=== PATIENT | male | born 1980 | race Caucasian/White ===

== ENCOUNTER 2020-07-23 17:45 | Observation (INO) | payer OTHER ==
[2020-07-23] MEDS ORDERED: Sodium Chloride 0.9% 10 ML Syringe FLUSH PRN (18:04)
[2020-07-23] MEDS ORDERED: HYDROmorphone 0.5 MG/0.5 ML Syringe IVPUSH ONE (18:05)
[2020-07-23] MEDS ORDERED: Ondansetron 4 MG/2 ML SDV IVPUSH ONE (18:05)
--- NOTE | 2020-07-23 19:26 | US ---
Limited abdominal ultrasound: Multiple real-time images of the upper right abdomen were obtained. Comparison: No previous abdominal imaging is available. Findings: Liver is somewhat echogenic as related to the kidney most likely representing fatty infiltration. Right kidney shows no hydronephrosis or mass and has a length of 11.7 cm. Multiple gallstones are seen within the gallbladder as well as sludge. Gallbladder wall shows very slight areas of thickening. Minimal edema is noted around the gallbladder wall. CHD is seen and is normal in size. Common bile duct is not visualized but most likely is within normal limits given the normal CBD size. Pancreas is incompletely seen, visualized portions of the pancreas are within normal limits. Main portal vein shows normal hepatopedal flow. Impression: 1. Gallstones and sludge within the gallbladder. Gallbladder wall shows some areas of slight thickening with mild pericholecystic fluid. No biliary duct dilatation is definitely seen. 2. Fatty infiltration within the liver. 3. No additional abnormality is appreciated. Diagnostic code #3
[2020-07-23] MEDS ORDERED: Piperacillin/Tazobactam 4.5 GM in Sodium Chloride 0.9% 100 ML IV ONE (19:33)
--- NOTE | 2020-07-23 19:44 | EDM.PDOC ---
ED HPI GENERAL MEDICAL PROBLEM - General Chief Complaint: Abdominal Pain Stated Complaint: ABD PAIN Time Seen by Provider: 07/23/20 17:55 Source of Information: Reports: Patient, RN Notes Reviewed History Limitations: Reports: No Limitations - History of Present Illness INITIAL COMMENTS - FREE TEXT/NARRATIVE: Patient is a 40-year-old male presenting to the emergency department with complaints of right upper quadrant pain with onset around 1600 this afternoon. He states he has had 2 other episodes similar to this in the past few months; however, those episodes resolved within 1 hour. The pain today is persistent. He denies any nausea or vomiting associated with this. He said no fever or chills. Denies any significant fatty meals. This afternoon he has had a couple [place] kisses and some almonds. Other than that he has not eaten since breakfast this morning. He denies any chronic medical conditions and has had no previous abdominal surgeries. Abdominal Pain Score (Numeric/FACES): 4 - Related Data Allergies Allergy/AdvReac Type Severity Reaction Status Date / Time No Known Allergies Allergy Verified 07/23/20 17:56 Home Meds: Home Meds . [No Known Home Meds] 07/23/20 [History] Past Medical History - Past Health History Medical/Surgical History: Denies Medical/Surgical History Social & Family History - Tobacco Use Tobacco Use Status *Q: Light Tobacco User Years of Tobacco use: 10 Packs/Tins Daily: 0.1 - Caffeine Use Caffeine Use: Reports: Coffee, Soda - Recreational Drug Use Recreational Drug Use: No ED ROS GENERAL - Review of Systems Review Of Systems: See Below Constitutional: Reports: No Symptoms. Denies: Fever, Chills, Weakness HEENT: Reports: No Symptoms Respiratory: Reports: No Symptoms Cardiovascular: Reports: No Symptoms Endocrine: Reports: No Symptoms GI/Abdominal: Reports: Abdominal Pain. Denies: Diarrhea, Nausea, Vomiting : Reports: No Symptoms Musculoskeletal: Reports: No Symptoms Skin: Reports: No Symptoms Neurological: Reports: No Symptoms Psychiatric: Reports: No Symptoms Hematologic/Lymphatic: Reports: No Symptoms Immunologic: Reports: No Symptoms ED EXAM, GI/ABD - Physical Exam Exam: See Below General Appearance: Alert, WD/WN, No Apparent Distress Respiratory/Chest: No Respiratory Distress, Lungs Clear, Normal Breath Sounds, No Accessory Muscle Use, Chest Non-Tender Cardiovascular: Normal Peripheral Pulses GI/Abdominal Exam: Normal Bowel Sounds, Soft, No Organomegaly, No Distention, No Abnormal Bruit, No Mass, Pelvis Stable, Tender (Right upper quadrant. Positive Velazquez sign) Neurological: Alert, Oriented, CN II-XII Intact, Normal Cognition, Normal Gait, Normal Reflexes, No Motor/Sensory Deficits Psychiatric: Normal Affect, Normal Mood Skin Exam: Warm, Dry, Intact, Normal Color, No Rash Course - Vital Signs Last Recorded V/S: Last Vital Signs Temp 96.9 F 07/23/20 17:52 Pulse 60 07/23/20 17:52 Resp 20 07/23/20 17:52 BP 160/100 H 07/23/20 17:52 Pulse Ox 100 07/23/20 17:52 - Orders/Labs/Meds Orders: Active Orders 24 hr Category Date Time Status Peripheral IV Care [RC] . DIRECTED Care 07/23/20 18:04 Active Piperacillin/Tazobactam [Piperacil-Tazobact] 4.5 gm Med 07/23/20 19:33 Active Sodium Chloride 0.9% [Normal Saline] 100 ml IV ONETIME Sodium Chloride 0.9% [Saline Flush] Med 07/23/20 18:04 Active 10 ml FLUSH ASDIRECTED PRN Peripheral IV Insertion Adult [OM.PC] Stat Oth 07/23/20 18:04 Ordered Medication Orders Piperacillin Sod/Tazobactam (Sod 4.5 gm/ Sodium Chloride) 100 mls @ 200 mls/hr IV ONETIME ONE Stop: 07/23/20 20:02 Sodium Chloride (Saline Flush) 10 ml FLUSH ASDIRECTED PRN PRN Reason: Keep Vein Open Last Admin: 07/23/20 18:18 Dose: 10 ml Documented by: DARLIN Labs: Laboratory Tests 07/23/20 07/23/20 Range/Units 18:00 18:00 WBC 7.66 (4.23-9.07) K/mm3 RBC 5.45 (4.63-6.08) M/mm3 Hgb 15.7 (13.7-17.5) gm/dl Hct 46.1 (40.1-51.0) % MCV 84.6 (79.0-92.2) fl MCH 28.8 (25.7-32.2) pg MCHC 34.1 (32.2-35.5) g/dl RDW Std Deviation 37.5 (35.1-43.9) fL Plt Count 296 (163-337) K/mm3 MPV 9.6 (9.4-12.3) fl Neut % (Auto) 61.5 (34.0-67.9) % Lymph % (Auto) 24.5 (21.8-53.1) % [place] % (Auto) 7.6 (5.3-12.2) % Eos % (Auto) 5.9 (0.8-7.0) Baso % (Auto) 0.4 (0.1-1.2) % Neut # (Auto) 4.71 (1.78-5.38) K/mm3 Lymph # (Auto) 1.88 (1.32-3.57) K/mm3 [place] # (Auto) 0.58 (0.30-0.82) K/mm3 Eos # (Auto) 0.45 (0.04-0.54) K/mm3 Baso # (Auto) 0.03 (0.01-0.08) K/mm3 Sodium 142 (136-145) mEq/L Potassium 3.8 (3.5-5.1) mEq/L Chloride 105 (98-107) mEq/L Carbon Dioxide 26 (21-32) mEq/L Anion Gap 14.8 (5-15) BUN 11 (7-18) mg/dL Creatinine 1.1 (0.7-1.3) mg/dL Est Cr Clr Drug Dosing 93.09 mL/min Estimated GFR (MDRD) > 60 (>60) mL/min BUN/Creatinine Ratio 10.0 L (14-18) Glucose 123 H (74-106) mg/dL Calcium 9.4 (8.5-10.1) mg/dL Total Bilirubin 0.3 (0.2-1.0) mg/dL GGT 33 (15-85) U/L AST 24 (15-37) U/L ALT 51 (16-63) U/L Alkaline Phosphatase 64 (46-116) U/L C-Reactive Protein <0.2 (<1.0) mg/dL Total Protein 7.7 (6.4-8.2) g/dl Albumin 4.3 (3.4-5.0) g/dl Globulin 3.4 gm/dL Albumin/Globulin Ratio 1.3 (1-2) Lipase 139 (73-393) U/L Meds: Medications Generic Name Dose Route Start Last Admin Trade Name Bebe PRN Reason Stop Dose Admin Piperacillin Sod/Tazobactam 100 mls @ 200 mls/hr 07/23/20 19:33 Sod 4.5 gm/ Sodium Chloride IV 07/23/20 20:02 ONETIME ONE Sodium Chloride 10 ml 07/23/20 18:04 07/23/20 18:18 Saline Flush FLUSH 10 ml ASDIRECTED PRN Administration Keep Vein Open Discontinued Medications Generic Name Dose Route Start Last Admin Trade Name Freq PRN Reason Stop Dose Admin Hydromorphone HCl 0.5 mg 07/23/20 18:05 07/23/20 18:18 Dilaudid IVPUSH 07/23/20 18:06 0.5 mg ONETIME ONE Administration Ondansetron HCl 4 mg 07/23/20 18:05 07/23/20 18:18 Zofran IVPUSH 07/23/20 18:06 4 mg ONETIME ONE Administration - Re-Assessments/Exams Free Text/Narrative Re-Assessment/Exam: Patient is a 40-year-old male presenting to the emergency department with complaints of right upper quadrant abdominal pain since 1600 this afternoon. On exam, patient is tender in the right upper quadrant with a positive Velazquez sign. He denies any nausea or vomiting. I have ordered blood work, and right upper quadrant abdominal ultrasound. We will give him a 1 L bolus of normal saline, Zofran 4 mg IV, Dilaudid 0.5 mg IV. 07/23/20 19:41 Hematology is grossly unremarkable. Results of the right upper quadrant ultrasound show gallstones and sludge within the gallbladder. Gallbladder wall shows some areas of slight thickening and mild pericholecystic fluid. No biliary duct dilatation is definitively seen. Fatty infiltrates within the liver. Case discussed with general surgeon, Dr. Kim. He would like him admitted to observation with a plan to take his gallbladder out tomorrow morning. I will write for bridge orders per his request. Patient has been updated and is in agreement. Departure - Departure Time of Disposition: 19:44 Disposition: Refer to Observation Condition: Good Clinical Impression: Cholecystitis - Discharge Information Referrals: PCP,None [Primary Care Provider] - Sepsis Event Note (ED) - Evaluation Sepsis Screening Result: No Definite Risk - Focused Exam Vital Signs: Vital Signs Temp Pulse Resp BP Pulse Ox 07/23/20 17:52 96.9 F 60 20 160/100 H 100 - My Orders Last 24 Hours: My Active Orders 07/23/20 18:04 Peripheral IV Care [RC] . DIRECTED Sodium Chloride 0.9% [Saline Flush] 10 ml FLUSH ASDIRECTED PRN Peripheral IV Insertion Adult [OM.PC] Stat 07/23/20 19:33 Piperacillin/Tazobactam [Piperacil-Tazobact] 4.5 gm Sodium Chloride 0.9% [Normal Saline] 100 ml IV ONETIME - Assessment/Plan Last 24 Hours: My Active Orders 07/23/20 18:04 Peripheral IV Care [RC] . DIRECTED Sodium Chloride 0.9% [Saline Flush] 10 ml FLUSH ASDIRECTED PRN Peripheral IV Insertion Adult [OM.PC] Stat 07/23/20 19:33 Piperacillin/Tazobactam [Piperacil-Tazobact] 4.5 gm Sodium Chloride 0.9% [Normal Saline] 100 ml IV ONETIME
[2020-07-23] MEDS: Lactated Ringers 1,000 ML IV SCH (21:10)
[2020-07-23] MEDS ORDERED: Ondansetron 4 MG/2 ML SDV IVPUSH PRN (22:04)
[2020-07-23] MEDS ORDERED: HYDROmorphone 0.5 MG/0.5 ML Syringe IVPUSH PRN (22:04)
[2020-07-24] MEDS: Piperacillin/Tazobactam 4.5 GM in Sodium Chloride 0.9% 100 ML IV SCH ×2 (03:10→10:33)
[2020-07-24] MEDS ORDERED: Piperacillin/Tazobactam 4.5 GM in Sodium Chloride 0.9% 100 ML IV SCH (04:00)
[2020-07-24] MEDS: Lactated Ringers 1,000 ML IV SCH (07:19)
[2020-07-24] MEDS ORDERED: Rocuronium 50 MG/5 ML Vial ONE (09:28)
[2020-07-24] MEDS ORDERED: Dexamethasone 4 MG/ML 5 ML MDV ONE (09:28)
[2020-07-24] MEDS ORDERED: fentaNYL 250 MCG/5 ML SDV ONE (09:28)
[2020-07-24] MEDS ORDERED: Ondansetron 4 MG/2 ML SDV ONE (09:28)
[2020-07-24] MEDS ORDERED: Propofol 200 MG/20 ML SDV ONE (09:28)
[2020-07-24] MEDS ORDERED: Midazolam 1 MG/ML 2 ML SDV ONE (09:28)
[2020-07-24] MEDS ORDERED: Lidocaine 1% 4 ML ONE (09:28)
--- NOTE | 2020-07-24 10:01 | PCM.PREANE ---
Preanesthetic Assessment - Procedure Proposed Procedure: Laparoscopic Cholecystectomy - Anesthesia/Transfusion/Family Hx Anesthesia History: No Prior Anesthesia Family History of Anesthesia Reaction: No Transfusion History: No Prior Transfusion(s) - Review of Systems General: No Symptoms Pulmonary: No Symptoms (Occasional Cigar. Up to 5 per week at the most. ) Cardiovascular: No Symptoms, Other (Good exercise capacity. > 4 METs) Gastrointestinal: Other (GERD controlled with Tums. No symptoms today. ) Other: Reports: None - Physical Assessment NPO Status Date: 07/23/20 NPO Status Time: 23:30 (Sip Water) Vital Signs: Last Vital Signs Temp 37.1 C 07/24/20 08:38 Pulse 65 07/24/20 08:38 Resp 16 07/24/20 08:38 BP 151/104 H 07/24/20 08:38 Pulse Ox 96 07/24/20 08:38 Height: 1.78 m Weight: 88.451 kg ASA Class: 2 Mental Status: Alert & Oriented x3 Airway Class: Mallampati = 1 Dentition: Reports: Normal Dentition Thyro-Mental Finger Breadths: 3 Mouth Opening Finger Breadths: 3 ROM/Head Extension: Full Lungs: Clear to Auscultation, Normal Respiratory Effort Cardiovascular: Regular Rate, Regular Rhythm - Lab Values: Laboratory Last Values WBC 7.66 K/mm3 (4.23-9.07) 07/23/20 18:00 RBC 5.45 M/mm3 (4.63-6.08) 07/23/20 18:00 Hgb 15.7 gm/dl (13.7-17.5) 07/23/20 18:00 Hct 46.1 % (40.1-51.0) 07/23/20 18:00 MCV 84.6 fl (79.0-92.2) 07/23/20 18:00 MCH 28.8 pg (25.7-32.2) 07/23/20 18:00 MCHC 34.1 g/dl (32.2-35.5) 07/23/20 18:00 RDW Std Deviation 37.5 fL (35.1-43.9) 07/23/20 18:00 Plt Count 296 K/mm3 (163-337) 07/23/20 18:00 MPV 9.6 fl (9.4-12.3) 07/23/20 18:00 Neut % (Auto) 61.5 % (34.0-67.9) 07/23/20 18:00 Lymph % (Auto) 24.5 % (21.8-53.1) 07/23/20 18:00 [place] % (Auto) 7.6 % (5.3-12.2) 07/23/20 18:00 Eos % (Auto) 5.9 (0.8-7.0) 07/23/20 18:00 Baso % (Auto) 0.4 % (0.1-1.2) 07/23/20 18:00 Neut # (Auto) 4.71 K/mm3 (1.78-5.38) 07/23/20 18:00 Lymph # (Auto) 1.88 K/mm3 (1.32-3.57) 07/23/20 18:00 [place] # (Auto) 0.58 K/mm3 (0.30-0.82) 07/23/20 18:00 Eos # (Auto) 0.45 K/mm3 (0.04-0.54) 07/23/20 18:00 Baso # (Auto) 0.03 K/mm3 (0.01-0.08) 07/23/20 18:00 Sodium 142 mEq/L (136-145) 07/23/20 18:00 Potassium 3.8 mEq/L (3.5-5.1) 07/23/20 18:00 Chloride 105 mEq/L (98-107) 07/23/20 18:00 Carbon Dioxide 26 mEq/L (21-32) 07/23/20 18:00 Anion Gap 14.8 (5-15) 07/23/20 18:00 BUN 11 mg/dL (7-18) 07/23/20 18:00 Creatinine 1.1 mg/dL (0.7-1.3) 07/23/20 18:00 Est Cr Clr Drug Dosing 93.09 mL/min 07/23/20 18:00 Estimated GFR (MDRD) > 60 mL/min (>60) 07/23/20 18:00 BUN/Creatinine Ratio 10.0 (14-18) L 07/23/20 18:00 Glucose 123 mg/dL (74-106) H 07/23/20 18:00 Calcium 9.4 mg/dL (8.5-10.1) 07/23/20 18:00 Total Bilirubin 0.3 mg/dL (0.2-1.0) 07/23/20 18:00 GGT 33 U/L (15-85) 07/23/20 18:00 AST 24 U/L (15-37) 07/23/20 18:00 ALT 51 U/L (16-63) 07/23/20 18:00 Alkaline Phosphatase 64 U/L (46-116) 07/23/20 18:00 C-Reactive Protein <0.2 mg/dL (<1.0) 07/23/20 18:00 Total Protein 7.7 g/dl (6.4-8.2) 07/23/20 18:00 Albumin 4.3 g/dl (3.4-5.0) 07/23/20 18:00 Globulin 3.4 gm/dL 07/23/20 18:00 Albumin/Globulin Ratio 1.3 (1-2) 07/23/20 18:00 Lipase 139 U/L (73-393) 07/23/20 18:00 SARS-CoV-2 RNA (LISA) Negative (NEGATIVE) 07/23/20 19:47 - Allergies Allergies/Adverse Reactions: Allergies Allergy/AdvReac Type Severity Reaction Status Date / Time No Known Allergies Allergy Verified 07/23/20 17:56 - Anesthesia Plan Pre-Op Medication Ordered: None - Acknowledgements Anesthesia Type Planned: General Anesthesia Pt an Appropriate Candidate for the Planned Anesthesia: Yes Alternatives and Risks of Anesthesia Discussed w Pt/Guardian: Yes Pt/Guardian Understands and Agrees with Anesthesia Plan: Yes PreAnesthesia Questionnaire - Past Health History Medical/Surgical History: Denies Medical/Surgical History Psychiatric History: Reports: None Hematologic History: Reports: None - Infectious Disease History Infectious Disease History: Reports: Chicken Pox, Influenza Other Infectious Disease History: Hx of influenza last or prior year and chicken pox as a child, as well as pneumonia as a young child - SUBSTANCE USE Tobacco Use Status *Q: Light Tobacco User Tobacco Use Within Last Twelve Months: Cigars Recreational Drug Use History: No - HOME MEDS Home Medications: Home Meds . [No Known Home Meds] 07/23/20 [History] - CURRENT (IN HOUSE) MEDS Current Meds: Current Medications Hydromorphone HCl (Dilaudid) 0.5 mg IVPUSH Q4H PRN PRN Reason: Pain Lactated Ringer's (Ringers, Lactated) 1,000 mls @ 100 mls/hr IV ASDIRECTED [facility] Last Admin: 07/24/20 07:19 Dose: 100 mls/hr Documented by: Piperacillin Sod/Tazobactam (Sod 4.5 gm/ Sodium Chloride) 100 mls @ 25 mls/hr IV Q8H [facility] Last Admin: 07/24/20 03:10 Dose: 25 mls/hr Documented by: Ondansetron HCl (Zofran) 4 mg IVPUSH Q6H PRN PRN Reason: Nausea/Vomiting Sodium Chloride (Saline Flush) 10 ml FLUSH ASDIRECTED PRN PRN Reason: Keep Vein Open Last Admin: 07/23/20 18:18 Dose: 10 ml Documented by: Discontinued Medications Dexamethasone (Dexamethasone) Confirm Administered Dose 20 mg .ROUTE .STK-MED ONE Stop: 07/24/20 09:29 Fentanyl (Sublimaze) Confirm Administered Dose 250 mcg .ROUTE .STK-MED ONE Stop: 07/24/20 09:29 Hydromorphone HCl (Dilaudid) 0.5 mg IVPUSH ONETIME ONE Stop: 07/23/20 18:06 Last Admin: 07/23/20 18:18 Dose: 0.5 mg Documented by: Piperacillin Sod/Tazobactam (Sod 4.5 gm/ Sodium Chloride) 100 mls @ 200 mls/hr IV ONETIME ONE Stop: 07/23/20 20:02 Last Admin: 07/23/20 19:45 Dose: 200 mls/hr Documented by: Piperacillin Sod/Tazobactam (Sod 4.5 gm/ Sodium Chloride) 100 mls @ 25 mls/hr IV Q8H [facility] Lidocaine HCl (Xylocaine-Mpf 1%) Confirm Administered Dose 4 mls @ as directed .ROUTE .STK-MED ONE Stop: 07/24/20 09:29 Midazolam HCl (Versed 1 Mg/Ml) Confirm Administered Dose 2 mg .ROUTE .STK-MED ONE Stop: 07/24/20 09:29 Ondansetron HCl (Zofran) 4 mg IVPUSH ONETIME ONE Stop: 07/23/20 18:06 Last Admin: 07/23/20 18:18 Dose: 4 mg Documented by: Ondansetron HCl (Zofran) Confirm Administered Dose 4 mg .ROUTE .STK-MED ONE Stop: 07/24/20 09:29 Propofol (Diprivan 20 Ml) Confirm Administered Dose 200 mg .ROUTE .STK-MED ONE Stop: 07/24/20 09:29 Rocuronium [place] (Zemuron) Confirm Administered Dose 50 mg .ROUTE .STK-MED ONE Stop: 07/24/20 09:29
[2020-07-24] MEDS ORDERED: Bupivacaine 0.5%/EPINEPHrine 1:200,000 50 ML MDV ONE (10:16)
[2020-07-24] MEDS ORDERED: fentaNYL 100 MCG/2 ML SDV IVPUSH PRN (10:58)
[2020-07-24] MEDS ORDERED: HYDROmorphone 0.5 MG/0.5 ML Syringe IVPUSH PRN (10:58)
[2020-07-24] MEDS ORDERED: Ondansetron 4 MG/2 ML SDV IVPUSH PRN (10:58)
[2020-07-24] MEDS ORDERED: HYDROmorphone 0.5 MG/0.5 ML Syringe ONE (11:07)
[2020-07-24] MEDS ORDERED: Ketorolac 30 MG/ML SDV ONE (11:26)
[2020-07-24] MEDS ORDERED: Lactated Ringers 1,000 ML ONE (11:29)
--- NOTE | 2020-07-24 11:52 | PCM.PRNOTE ---
- Free Text/Narrative Note: Date: 07/24/2020 Operation: laparoscopic cholecystectomy Surgeon: Justen Kim MD Findings: acute calculous cholecystitis. Critical view of safety obtained. Detailed Report: The patient was taken to the operating room and placed in supine position. Timeout was performed, and general endotracheal anesthesia was initiated. Abdominal hair was clipped, and the abdomen was prepped and draped in usual sterile fashion. A Veress needle was placed at the left upper quadrant to establish pneumoperitoneum. Air was aspirated at the umbilicus. A bladed 5 mm trocar was placed at the site. The laparoscope was inserted and abdominal contents were inspected. There was no inadvertent injury from Veress needle keyla cement. The needle was withdrawn, and additional 5 mm ports were placed in the patient's right upper side under laparoscopic visualization. The gallbladder was grasped at the fundus and retracted cephalad. An additional 12 mm bladed trocar was placed at the subxiphoid site. Dissection ensued, identifying the cystic structures. The surgeon retracted the infundibulum laterally, and a critical view of safety was obtained after skeletonizing the cystic duct and artery. Hemolock clips were placed on the structures and they were transected with laparoscopic scissors. Hook monopolar energy was used to separate the gallbladder from the liver. No bile was spilled. The specimen was placed in an Endo Catch bag and removed through the subxiphoid site. The dissection field appeared clean and dry. 0 Vicryl was used to close the larger incision at the level of fascia using a laparoscopic suture passer. Because there was a small umbilical hernia, the trocar site there was closed at the level of the fascia with 0 Vicryl using the laparoscopic suture passer as well. Other ports were removed under laparoscopic visualization, and pneumoperitoneum was released. All incisions were closed at the level of the skin with 4-0 Vicryl. Wounds were dressed with Dermabond. A total of 26 cc of 0.5% Marcaine with epinephrine was used for local anesthetic throughout the case. The patient tolerated the procedure well.
--- NOTE | 2020-07-24 11:54 | PCM.HP.2 ---
H&P History of Present Illness - General Date of Service: 07/24/20 Admit Problem/Dx: Admission Diagnosis/Problem Admission Diagnosis/Problem Cholecystitis Source of Information: Patient History Limitations: Reports: No Limitations - History of Present Illness Initial Comments - Free Text/Narative: The patient is a healthy 40-year-old presenting with his third episode of right upper quadrant pain. Work-up shows evidence of cholecystitis on ultrasound with otherwise normal labs. Abdominal Pain Score (Numeric/FACES): 0 - Related Data Allergies/Adverse Reactions: Allergies Allergy/AdvReac Type Severity Reaction Status Date / Time No Known Allergies Allergy Verified 07/23/20 17:56 Home Medications: Home Meds oxyCODONE 5 mg PO Q4H PRN #15 tab 07/24/20 [Rx] Past Medical History - Past Health History Medical/Surgical History: Denies Medical/Surgical History Psychiatric History: Reports: None Hematologic History: Reports: None - Infectious Disease History Infectious Disease History: Reports: Chicken Pox, Influenza Other Infectious Disease History: Hx of influenza last or prior year and chicken pox as a child, as well as pneumonia as a young child Social & Family History - Family History Family Medical History: No Pertinent Family History - Tobacco Use Tobacco Use Status *Q: Light Tobacco User Years of Tobacco use: 10 Packs/Tins Daily: 0.1 - Caffeine Use Caffeine Use: Reports: Soda Other Caffeine Use: 8 cokes per day - Recreational Drug Use Recreational Drug Use: No H&P Review of Systems - Review of Systems: Review Of Systems: See Below General: Reports: No Symptoms HEENT: Reports: No Symptoms Pulmonary: Reports: No Symptoms Cardiovascular: Reports: No Symptoms Gastrointestinal: Reports: Abdominal Pain Genitourinary: Reports: No Symptoms Musculoskeletal: Reports: No Symptoms Skin: Reports: No Symptoms Psychiatric: Reports: No Symptoms Neurological: Reports: No Symptoms Hematologic/Lymphatic: Reports: No Symptoms Immunologic: Reports: No Symptoms Exam - Exam Exam: See Below - Vital Signs Vital Signs: Last Vital Signs Temp 37.1 C 07/24/20 08:38 Pulse 65 07/24/20 08:38 Resp 16 07/24/20 08:38 BP 151/104 H 07/24/20 08:38 Pulse Ox 96 07/24/20 08:38 Weight: 88.451 kg - Exam General: Alert, Oriented, Cooperative HEENT: Conjunctiva Clear Neck: Supple Lungs: Clear to Auscultation, Normal Respiratory Effort Cardiovascular: Regular Rate, Regular Rhythm GI/Abdominal Exam: Soft, Tender Extremities: Normal Inspection Skin: Warm, Dry Psychiatric: Normal Mood - Patient Data Lab Results Last 24 hrs: Laboratory Results - last 24 hr 07/23/20 07/23/20 07/23/20 Range/Units 18:00 18:00 19:47 WBC 7.66 (4.23-9.07) K/mm3 RBC 5.45 (4.63-6.08) M/mm3 Hgb 15.7 (13.7-17.5) gm/dl Hct 46.1 (40.1-51.0) % MCV 84.6 (79.0-92.2) fl MCH 28.8 (25.7-32.2) pg MCHC 34.1 (32.2-35.5) g/dl RDW Std Deviation 37.5 (35.1-43.9) fL Plt Count 296 (163-337) K/mm3 MPV 9.6 (9.4-12.3) fl Neut % (Auto) 61.5 (34.0-67.9) % Lymph % (Auto) 24.5 (21.8-53.1) % [place] % (Auto) 7.6 (5.3-12.2) % Eos % (Auto) 5.9 (0.8-7.0) Baso % (Auto) 0.4 (0.1-1.2) % Neut # (Auto) 4.71 (1.78-5.38) K/mm3 Lymph # (Auto) 1.88 (1.32-3.57) K/mm3 [place] # (Auto) 0.58 (0.30-0.82) K/mm3 Eos # (Auto) 0.45 (0.04-0.54) K/mm3 Baso # (Auto) 0.03 (0.01-0.08) K/mm3 Sodium 142 (136-145) mEq/L Potassium 3.8 (3.5-5.1) mEq/L Chloride 105 (98-107) mEq/L Carbon Dioxide 26 (21-32) mEq/L Anion Gap 14.8 (5-15) BUN 11 (7-18) mg/dL Creatinine 1.1 (0.7-1.3) mg/dL Est Cr Clr Drug Dosing 93.09 mL/min Estimated GFR (MDRD) > 60 (>60) mL/min BUN/Creatinine Ratio 10.0 L (14-18) Glucose 123 H (74-106) mg/dL Calcium 9.4 (8.5-10.1) mg/dL Total Bilirubin 0.3 (0.2-1.0) mg/dL GGT 33 (15-85) U/L AST 24 (15-37) U/L ALT 51 (16-63) U/L Alkaline Phosphatase 64 (46-116) U/L C-Reactive Protein <0.2 (<1.0) mg/dL Total Protein 7.7 (6.4-8.2) g/dl Albumin 4.3 (3.4-5.0) g/dl Globulin 3.4 gm/dL Albumin/Globulin Ratio 1.3 (1-2) Lipase 139 (73-393) U/L SARS-CoV-2 RNA (LISA) Negative (NEGATIVE) Result Diagrams: 07/23/20 18:00 07/23/20 18:00 Sepsis Event Note - Evaluation Sepsis Screening Result: No Definite Risk - Focused Exam Vital Signs: Vital Signs Temp Pulse Resp BP Pulse Ox 07/24/20 08:38 37.1 C 65 16 151/104 H 96 07/24/20 03:16 37.3 C 55 L 13 117/57 L 95 Problem List Initiated/Reviewed/Updated: Yes Orders Last 24hrs: Active Orders 24 hr Category Date Time Status Patient Status [ADT] Routine ADT 07/23/20 20:38 Active Activity as Tolerated [RC] .Routine Care 07/23/20 22:04 Active Communication Order [RC] ASDIRECTED Care 07/24/20 10:58 Active Cooling Warming Measures [RC] ASDIRECTED Care 07/24/20 10:58 Active EKG 12 Lead [EKG Documentation Completion] [RC] AM Care 07/24/20 05:00 Active Oxygen Therapy [RC] ASDIRECTED Care 07/24/20 10:58 Active Peripheral IV Care [RC] . DIRECTED Care 07/23/20 18:04 Active Pulse Oximetry [RC] ASDIRECTED Care 07/24/20 10:58 Active Ready for Discharge [RC] PER UNIT ROUTINE Care 07/24/20 11:49 Active Vital Signs [RC] Q15M Care 07/24/20 10:58 Active Clear Liquid Diet [DIET] Diet 07/24/20 Breakfast Active Nothing per Oral After Midnight Diet [DIET] Diet 07/24/20 Breakfast Active HYDROmorphone [Dilaudid] Med 07/24/20 10:58 Active 0.5 mg IVPUSH Q10M PRN HYDROmorphone [Dilaudid] Med 07/23/20 22:04 Active 0.5 mg IVPUSH Q4H PRN Lactated Ringers [Ringers, Lactated] 1,000 ml Med 07/23/20 21:15 Active IV ASDIRECTED Ondansetron [Zofran] Med 07/24/20 10:58 Active 4 mg IVPUSH ONETIME PRN Ondansetron [Zofran] Med 07/23/20 22:04 Active 4 mg IVPUSH Q6H PRN Piperacillin/Tazobactam [Piperacil-Tazobact] 4.5 gm Med 07/24/20 03:00 Active Sodium Chloride 0.9% [Normal Saline] 100 ml IV Q8H Sodium Chloride 0.9% [Saline Flush] Med 07/23/20 18:04 Active 10 ml FLUSH ASDIRECTED PRN fentaNYL [Sublimaze] Med 07/24/20 10:58 Active 50 mcg IVPUSH Q5M PRN Peripheral IV Insertion Adult [OM.PC] Stat Oth 07/23/20 18:04 Ordered Schedule Procedure [COMM] Stat Oth 07/24/20 10:24 Ordered Medication Orders Fentanyl (Sublimaze) 50 mcg IVPUSH Q5M PRN PRN Reason: Pain Stop: 07/24/20 13:30 Hydromorphone HCl (Dilaudid) 0.5 mg IVPUSH Q4H PRN PRN Reason: Pain Hydromorphone HCl (Dilaudid) 0.5 mg IVPUSH Q10M PRN PRN Reason: Pain (severe 7-10) Stop: 07/24/20 13:30 Lactated Ringer's (Ringers, Lactated) 1,000 mls @ 100 mls/hr IV ASDIRECTED [facility] Last Admin: 07/24/20 07:19 Dose: 100 mls/hr Documented by: Infusion: 07/24/20 07:10 Dose: 100 mls/hr Documented by: Admin: 07/23/20 21:10 Dose: 100 mls/hr Documented by: ZACHARY Piperacillin Sod/Tazobactam (Sod 4.5 gm/ Sodium Chloride) 100 mls @ 25 mls/hr IV Q8H [facility] Last Admin: 07/24/20 10:33 Dose: 25 mls/hr Documented by: Infusion: 07/24/20 07:10 Dose: 25 mls/hr Documented by: Admin: 07/24/20 03:10 Dose: 25 mls/hr Documented by: JOSLYN Ondansetron HCl (Zofran) 4 mg IVPUSH Q6H PRN PRN Reason: Nausea/Vomiting Ondansetron HCl (Zofran) 4 mg IVPUSH ONETIME PRN PRN Reason: Nausea/Vomiting Stop: 07/24/20 13:30 Sodium Chloride (Saline Flush) 10 ml FLUSH ASDIRECTED PRN PRN Reason: Keep Vein Open Last Admin: 07/23/20 18:18 Dose: 10 ml Documented by: DARLIN Assessment/Plan Comment:: Acute calculus cholecystitis. Plan for laparoscopic cholecystectomy with discharged home afterwards. - Mortality Measure Prognosis:: Good
--- NOTE | 2020-07-24 11:55 | PCM.DCSUM1 ---
Discharge Summary - Hospital Course Free Text/Narrative:: Patient was admitted through the emergency room last night with findings of acute cholecystitis. He went to the operating room today for uneventful laparoscopic cholecystectomy. He was deemed fit for discharge after awakening in the recovery room following his operation. Diagnosis: Stroke: No - Discharge Data Discharge Date: 07/24/20 Discharge Disposition: Home, Self-Care 01 Condition: Stable - Referral to Home Health Primary Care Physician: PCP None - Patient Summary/Data Operative Procedure(s) Performed: laparoscopic cholecystectomy - Patient Instructions Diet: Usual Diet as Tolerated - Discharge Plan *PRESCRIPTION DRUG MONITORING PROGRAM REVIEWED*: Not Applicable *COPY OF PRESCRIPTION DRUG MONITORING REPORT IN PATIENT SINCERE: Not Applicable Prescriptions/Med Rec: oxyCODONE 5 mg PO Q4H PRN #15 tab PRN Reason: Pain Home Medications: Home Meds oxyCODONE 5 mg PO Q4H PRN #15 tab 07/24/20 [Rx] Oxygen Therapy Mode: Room Air Patient Handouts: Sepsis, Diagnosis, Adult, Steps to Quit Smoking Forms: ED Department Discharge Referrals: PCP,None [Primary Care Provider] - - Discharge Summary/Plan Comment DC Time >30 min.: No Discharge Summary/Plan Comment: Follow up in surgery clinic with Dr. Kim in 2 weeks. - Patient Data Vitals - Most Recent: Last Vital Signs Temp 37.1 C 07/24/20 08:38 Pulse 65 07/24/20 08:38 Resp 16 07/24/20 08:38 BP 151/104 H 07/24/20 08:38 Pulse Ox 96 07/24/20 08:38 Weight - Most Recent: 88.451 kg I&O - Last 24 hours: Intake & Output 07/23/20 07/24/20 07/24/20 22:59 06:59 14:59 Intake Total 1000 1100 Output Total 250 Balance 750 1100 Lab Results - Last 24 hrs: Laboratory Results - last 24 hr 07/23/20 07/23/20 07/23/20 Range/Units 18:00 18:00 19:47 WBC 7.66 (4.23-9.07) K/mm3 RBC 5.45 (4.63-6.08) M/mm3 Hgb 15.7 (13.7-17.5) gm/dl Hct 46.1 (40.1-51.0) % MCV 84.6 (79.0-92.2) fl MCH 28.8 (25.7-32.2) pg MCHC 34.1 (32.2-35.5) g/dl RDW Std Deviation 37.5 (35.1-43.9) fL Plt Count 296 (163-337) K/mm3 MPV 9.6 (9.4-12.3) fl Neut % (Auto) 61.5 (34.0-67.9) % Lymph % (Auto) 24.5 (21.8-53.1) % [place] % (Auto) 7.6 (5.3-12.2) % Eos % (Auto) 5.9 (0.8-7.0) Baso % (Auto) 0.4 (0.1-1.2) % Neut # (Auto) 4.71 (1.78-5.38) K/mm3 Lymph # (Auto) 1.88 (1.32-3.57) K/mm3 [place] # (Auto) 0.58 (0.30-0.82) K/mm3 Eos # (Auto) 0.45 (0.04-0.54) K/mm3 Baso # (Auto) 0.03 (0.01-0.08) K/mm3 Sodium 142 (136-145) mEq/L Potassium 3.8 (3.5-5.1) mEq/L Chloride 105 (98-107) mEq/L Carbon Dioxide 26 (21-32) mEq/L Anion Gap 14.8 (5-15) BUN 11 (7-18) mg/dL Creatinine 1.1 (0.7-1.3) mg/dL Est Cr Clr Drug Dosing 93.09 mL/min Estimated GFR (MDRD) > 60 (>60) mL/min BUN/Creatinine Ratio 10.0 L (14-18) Glucose 123 H (74-106) mg/dL Calcium 9.4 (8.5-10.1) mg/dL Total Bilirubin 0.3 (0.2-1.0) mg/dL GGT 33 (15-85) U/L AST 24 (15-37) U/L ALT 51 (16-63) U/L Alkaline Phosphatase 64 (46-116) U/L C-Reactive Protein <0.2 (<1.0) mg/dL Total Protein 7.7 (6.4-8.2) g/dl Albumin 4.3 (3.4-5.0) g/dl Globulin 3.4 gm/dL Albumin/Globulin Ratio 1.3 (1-2) Lipase 139 (73-393) U/L SARS-CoV-2 RNA (LISA) Negative (NEGATIVE) Med Orders - Current: Current Medications Fentanyl (Sublimaze) 50 mcg IVPUSH Q5M PRN PRN Reason: Pain Stop: 07/24/20 13:30 Hydromorphone HCl (Dilaudid) 0.5 mg IVPUSH Q4H PRN PRN Reason: Pain Hydromorphone HCl (Dilaudid) 0.5 mg IVPUSH Q10M PRN PRN Reason: Pain (severe 7-10) Stop: 07/24/20 13:30 Lactated Ringer's (Ringers, Lactated) 1,000 mls @ 100 mls/hr IV ASDIRECTED [facility] Last Admin: 07/24/20 07:19 Dose: 100 mls/hr Documented by: Piperacillin Sod/Tazobactam (Sod 4.5 gm/ Sodium Chloride) 100 mls @ 25 mls/hr IV Q8H [facility] Last Admin: 07/24/20 10:33 Dose: 25 mls/hr Documented by: Ondansetron HCl (Zofran) 4 mg IVPUSH Q6H PRN PRN Reason: Nausea/Vomiting Ondansetron HCl (Zofran) 4 mg IVPUSH ONETIME PRN PRN Reason: Nausea/Vomiting Stop: 07/24/20 13:30 Sodium Chloride (Saline Flush) 10 ml FLUSH ASDIRECTED PRN PRN Reason: Keep Vein Open Last Admin: 07/23/20 18:18 Dose: 10 ml Documented by: Discontinued Medications Bupivacaine HCl/Epinephrine Bitart (Marcaine 0.5%/Epinephrine 1:200,000) Confirm Administered Dose 50 ml .ROUTE .STK-MED ONE Stop: 07/24/20 10:17 Dexamethasone (Dexamethasone) Confirm Administered Dose 20 mg .ROUTE .STK-MED ONE Stop: 07/24/20 09:29 Fentanyl (Sublimaze) Confirm Administered Dose 250 mcg .ROUTE .STK-MED ONE Stop: 07/24/20 09:29 Glycopyrrolate (Robinul) Confirm Administered Dose 0.4 mg .ROUTE .STK-MED ONE Stop: 07/24/20 11:09 Hydromorphone HCl (Dilaudid) 0.5 mg IVPUSH ONETIME ONE Stop: 07/23/20 18:06 Last Admin: 07/23/20 18:18 Dose: 0.5 mg Documented by: Hydromorphone HCl (Dilaudid) Confirm Administered Dose 0.5 mg .ROUTE .STK-MED ONE Stop: 07/24/20 11:08 Piperacillin Sod/Tazobactam (Sod 4.5 gm/ Sodium Chloride) 100 mls @ 200 mls/hr IV ONETIME ONE Stop: 07/23/20 20:02 Last Admin: 07/23/20 19:45 Dose: 200 mls/hr Documented by: Piperacillin Sod/Tazobactam (Sod 4.5 gm/ Sodium Chloride) 100 mls @ 25 mls/hr IV Q8H [facility] Lidocaine HCl (Xylocaine-Mpf 1%) Confirm Administered Dose 4 mls @ as directed .ROUTE .STK-MED ONE Stop: 07/24/20 09:29 Lactated Ringer's (Ringers, Lactated) Confirm Administered Dose 1,000 mls @ as directed .ROUTE .STK-MED ONE Stop: 07/24/20 11:30 Ketorolac Tromethamine (Toradol) Confirm Administered Dose 30 mg .ROUTE .STK-MED ONE Stop: 07/24/20 11:27 Midazolam HCl (Versed 1 Mg/Ml) Confirm Administered Dose 2 mg .ROUTE .STK-MED ONE Stop: 07/24/20 09:29 Neostigmine Methylsulfate (Neostigmine Methylsulfate) Confirm Administered Dose 5 mg .ROUTE .STK-MED ONE Stop: 07/24/20 11:09 Ondansetron HCl (Zofran) 4 mg IVPUSH ONETIME ONE Stop: 07/23/20 18:06 Last Admin: 07/23/20 18:18 Dose: 4 mg Documented by: Ondansetron HCl (Zofran) Confirm Administered Dose 4 mg .ROUTE .STK-MED ONE Stop: 07/24/20 09:29 Propofol (Diprivan 20 Ml) Confirm Administered Dose 200 mg .ROUTE .STK-MED ONE Stop: 07/24/20 09:29 Rocuronium Hamel (Zemuron) Confirm Administered Dose 50 mg .ROUTE .[facility] ONE Stop: 07/24/20 09:29
--- NOTE | 2020-07-24 11:59 | PCM.POSTAN ---
POST ANESTHESIA ASSESSMENT - MENTAL STATUS Mental Status: Somnolent - VITAL SIGNS Vital Signs: Last Vital Signs Temp 98.8 F 07/24/20 08:38 Pulse 65 07/24/20 08:38 Resp 16 07/24/20 08:38 BP 151/104 H 07/24/20 08:38 Pulse Ox 96 07/24/20 08:38 1153 62 15 99.3 159/88 98% - RESPIRATORY Respiratory Status: Respiratory Rate WNL, Airway Patent, O2 Saturation Stable, Supplemental Oxygen - CARDIOVASCULAR CV Status: Pulse Rate WNL, Blood Pressure Stable - GASTROINTESTINAL GI Status: No Symptoms - PAIN Pain Score: 0 (sleepy) - POST OP HYDRATION Hydration Status: Adequate & Stable
--- NOTE | 2020-07-24 12:52 | PCM48HPAN ---
Post Anesthesia Note - EVALUATION WITHIN 48HRS OF ANESTHETIC Vital Signs in Normal Range: Yes Patient Participated in Evaluation: Yes Respiratory Function Stable: Yes Airway Patent: Yes Cardiovascular Function Stable: Yes Hydration Status Stable: Yes Pain Control Satisfactory: Yes Nausea and Vomiting Control Satisfactory: Yes (nausea earlier- better now) Mental Status Recovered: Yes Vital Signs: Last Vital Signs Temp 99.3 F 07/24/20 12:30 Pulse 51 L 07/24/20 12:30 Resp 11 L 07/24/20 12:30 BP 157/95 H 07/24/20 12:30 Pulse Ox 99 07/24/20 12:39
[2020-07-24] MEDS ORDERED: oxyCODONE 5 MG Tab PO PRN (12:57)
== END 2020-07-24 14:12 | disposition home or self-care (01) ==
LOC: JD.ED 17:45 → JD.OB 20:38
PROVIDERS: ADMIT Surgery; ATTEND Surgery
DX: K80.12 Calculus of gallbladder with acute and chronic cholecystitis without obstruction (principal); F17.210 Nicotine dependence, cigarettes, uncomplicated; Z79.899 Other long term (current) drug therapy; Z01.812 Encounter for preprocedural laboratory examination; Z20.822 Contact with and (suspected) exposure to COVID-19
CPT/HCPCS: 00790; 36415; 76705; 76705-26; 80053; 82977; 83690; 85025; 86140; 93005; 96365; 96366; 96375; 99284; 99285-25; A9270-GY; G0378; J1100; J1170; J1885; J2001; J2250; J2405; J2543; J2704; J2710; J3010; J3490; J7120; U0002